=== PATIENT | male | born 1980 | race Caucasian/White ===

== ENCOUNTER 2018-06-06 04:20 | Emergency (ER) | payer OTHER ==
[2018-06-06 04:26] VITALS: BP 131/84
[2018-06-06 05:03] LABS: PLATELET COUNT 363 10^3/uL (150-400)
--- NOTE | 2018-06-06 06:02 | EDPHY ---
H & P Stated Complaint: Chest pain Time Seen by Provider: 06/06/18 05:40 HPI/ROS: HPI The patient presents with chest pain which has been present for the last several hours which started fairly suddenly. He feels it in his left anterior chest in a small well-localized area. It feels sharp and is worse with a deep breath. There is no radiation. He does not have shortness of breath, nausea, vomiting, dizziness. He has not had a cough or fever. He does not have any leg swelling. About 1 week ago he did return from an international flight. He has had no prior history of similar pain.. REVIEW OF SYSTEMS 10 systems were reviewed and negative with the exception of the elements mentioned in the history of present illness. 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 PHYSICAL General Appearance: Alert, no distress Eyes: Pupils equal and round no pallor or injection ENT, Mouth: Mucous membranes moist Respiratory: There are no retractions, lungs are clear to auscultation Cardiovascular: Regular rate and rhythm Gastrointestinal: Abdomen is soft and non-tender, no masses, bowel sounds normal Neurological: A&O, moves all extremities Skin: Warm and dry, no rashes Musculoskeletal: Neck is supple non tender Extremities: symmetrical, full range of motion Psychiatric: Patient is oriented X 3, there is no agitation Source: Patient Exam Limitations: No limitations - Personal History Current Tetanus/Diphtheria Vaccine: Yes Current Tetanus Diphtheria and Acellular Pertussis (TDAP): Yes - Medical/Surgical History Hx Asthma: No Hx Chronic Respiratory Disease: No Hx Diabetes: No Hx Cardiac Disease: No Hx Renal Disease: No Hx Cirrhosis: No Hx Alcoholism: No Hx HIV/AIDS: No Hx Splenectomy or Spleen Trauma: No Other PMH: Denies - Social History Smoking Status: Current some day smoker Constitutional: Initial Vital Signs Temperature (C) 37.3 C 06/06/18 04:24 Heart Rate 81 06/06/18 04:24 Respiratory Rate 16 06/06/18 04:24 Blood Pressure 131/84 H 06/06/18 04:24 O2 Sat (%) 95 06/06/18 04:24 O2 Delivery Mode Room Air Allergies/Adverse Reactions: No Known Allergies Allergy (Verified 06/06/18 04:22) Medical Decision Making - Diagnostics EKG Interpretation: EKG: Complete interpretation has been separately [facility] the [email or web address]. Summary impression: Normal sinus rhythm Imaging Results: Chest x-ray two views shows no acute abnormality, interpreted by me, radiology interpretation is pending. Imaging: I viewed and interpreted images myself Differential Diagnosis: 38-year-old healthy man presents with left-sided pleuritic sharp chest pain. Here, vital signs are normal, well-appearing. Lungs are clear. The patient had EKG chest x-ray and basic labs performed. All were negative. He informed me that when he took a deep breath for the chest x-ray his pain spontaneously improved and now he is he is asymptomatic and feels well. Differential diagnoses considered include pulmonary embolism, pneumonia, pneumothorax. Ultimately, I feel his pain is likely musculoskeletal. He will be discharged home. - Data Points Laboratory Results: Laboratory Results 06/06/18 04:45 06/06/18 04:45 06/06/18 06/06/18 06/06/18 04:45 04:45 04:45 WBC 7.14 10^3/uL 10^3/uL (3.80-9.50) RBC 5.43 10^6/uL 10^6/uL (4.40-6.38) Hgb 15.6 g/dL g/dL (13.7-17.5) Hct 46.3 % % (40.0-51.0) MCV 85.3 fL fL (81.5-99.8) MCH 28.7 pg pg (27.9-34.1) MCHC 33.7 g/dL g/dL (32.4-36.7) RDW 12.9 % % (11.5-15.2) Plt Count 363 10^3/uL 10^3/uL (150-400) MPV 8.6 fL L fL (8.7-11.7) Neut % (Auto) 54.7 % % (39.3-74.2) Lymph % (Auto) 34.5 % % (15.0-45.0) [place] % (Auto) 8.4 % % (4.5-13.0) Eos % (Auto) 1.4 % % (0.6-7.6) Baso % (Auto) 0.7 % % (0.3-1.7) Nucleat RBC Rel Count 0.0 % % (0.0-0.2) Absolute Neuts (auto) 3.91 10^3/uL 10^3/uL (1.70-6.50) Absolute Lymphs (auto) 2.46 10^3/uL 10^3/uL (1.00-3.00) Absolute Monos (auto) 0.60 10^3/uL 10^3/uL (0.30-0.80) Absolute Eos (auto) 0.10 10^3/uL 10^3/uL (0.03-0.40) Absolute Basos (auto) 0.05 10^3/uL 10^3/uL (0.02-0.10) Absolute Nucleated RBC 0.00 10^3/uL 10^3/uL (0-0.01) Immature Gran % 0.3 % % (0.0-1.1) Immature Gran # 0.02 10^3/uL 10^3/uL (0.00-0.10) D-Dimer 0.39 ug/mLFEU ug/mLFEU (0.00-0.50) Sodium 142 mEq/L mEq/L (135-145) Potassium 3.7 mEq/L mEq/L (3.5-5.2) Chloride 104 mEq/L mEq/L (97-110) Carbon Dioxide 26 mEq/l mEq/l (22-31) Anion Gap 12 mEq/L mEq/L (6-14) BUN 16 mg/dL mg/dL (7-23) Creatinine 1.1 mg/dL mg/dL (0.7-1.3) Estimated GFR > 60 Glucose 97 mg/dL mg/dL (70-100) Calcium 9.8 mg/dL mg/dL (8.5-10.4) Departure - Departure Disposition: Home, Routine, Self-Care Clinical Impression: Chest wall pain Condition: Good Instructions: Chest Wall Pain (ED) Additional Instructions: Please return to the emergency department if your worse in any way. If the pain comes back, I do recommend you take ibuprofen 400 mg every 6 hr. Referrals: [facility],. [Clinic] - As per Instructions
--- NOTE | 2018-06-06 06:20 | CPEKG ---
Test Reason : OPEN Blood Pressure : / mmHG Vent. Rate : 085 BPM Atrial Rate : 085 BPM P-R Int : 154 ms QRS Dur : 101 ms QT Int : 385 ms P-R-T Axes : 006 012 018 degrees QTc Int : 458 ms Sinus rhythm Confirmed by Neisha Serrano ([id number]) on 06/06/2018 6:19:11 AM Referred By: PHYSICIAN ED Confirmed By:Neisha Serrano
== END 2018-06-06 06:09 | disposition home or self-care (01) ==
DX: R91.8 Other nonspecific abnormal finding of lung field (principal)

== ENCOUNTER 2018-08-10 20:08 | Emergency (ER) | payer OTHER ==
[2018-08-10] MEDS ORDERED: DEXAMETHASONE 4 MG TAB PO ONE (21:50)
[2018-08-10] MEDS ORDERED: IBUPROFEN 800 MG TAB PO ONE (21:50)
--- NOTE | 2018-08-10 21:50 | EDPHY ---
H & P Time Seen by Provider: 08/10/18 21:19 HPI/ROS: Chief complaint: Sore throat History of present illness: This is a 38-year-old male who presents to the emergency department for a sore throat. Patient reports the onset of symptoms over the last 3 days. He has had associated headache and fatigue. Symptoms have been persistent. No report of fever. No neck pain. No report of trouble swallowing or talking, no report of cough or trouble breathing, no rash. Smoking Status: Former smoker Physical Exam: General Appearance: Alert and no distress. Eyes: Pupils equal and round no injection. ENT: Tympanic membranes, external auditory canals, external ears and surrounding soft tissue including over the mastoids are unremarkable. Nasopharynx is not injected. There is no rhinorrhea. Oropharynx is injected. There is no edema. Tonsils are erythematous and edematous with exudate. There is no asymmetry The uvula is midline. No elevation of the tongue. There is no hoarseness, no drooling, no trismus, no stridor. Respiratory: Chest is non tender, lungs are clear to auscultation. Cardiac: regular rate and rhythm Musculoskeletal: Neck is supple and non tender. Extremities have full range of motion and are non tender. Skin: No rashes or lesions. Constitutional: Initial Vital Signs Temperature (C) 37.3 C 08/10/18 20:12 Heart Rate 105 H 08/10/18 20:12 Respiratory Rate 18 08/10/18 20:12 Blood Pressure 130/94 H 08/10/18 20:12 O2 Sat (%) 93 08/10/18 20:12 O2 Delivery Mode Room Air Allergies/Adverse Reactions: No Known Allergies Allergy (Verified 06/06/18 04:22) Home Medications: Medication Instructions Recorded Amoxicillin Trihydrate [Amoxil] 500 mg PO TID 10 Days cap 08/10/18 MDM/Departure - MDM Medications Given: Discontinued Medications Amoxicillin (Amoxicillin) 500 mg PO EDNOW ONE PRN Reason: Protocol Stop: 08/10/18 21:51 Last Admin: 08/10/18 21:58 Dose: 500 mg Dexamethasone (Decadron) 10 mg PO EDNOW ONE Stop: 08/10/18 21:51 Last Admin: 08/10/18 21:59 Dose: 10 mg Ibuprofen (Motrin) 800 mg PO EDNOW ONE Stop: 08/10/18 21:51 Last Admin: 08/10/18 21:59 Dose: 800 mg ED Course/Re-evaluation: Patient seen under the supervision of my secondary supervising physician Dr. Hi Pritchett. Patient presents for sore throat. He appears to have an acute tonsillitis. I do not appreciate evidence of complications. He will be started on antibiotics. Home care is discussed. He is to follow up with primary care doctor for recheck. Return precautions are given. Differential Diagnosis: Included but not limited to tonsillitis, pharyngitis, doubtful complications such as abscess formation - Depart Disposition: Home, Routine, Self-Care Clinical Impression: Acute bacterial tonsillitis Condition: Good Instructions: Tonsillitis (ED) Additional Instructions: Follow-up with a primary care doctor this week for recheck Use ibuprofen 600 mg 3 times a day for the next 2-3 days for pain and swelling Take all antibiotics as prescribed until finished even feeling better If symptoms worsen or new symptoms develop return to the emergency room for recheck Prescriptions: Amoxicillin Trihydrate [Amoxil] 500 mg PO TID 10 Days cap Referrals: [facility],. [Clinic] - As per Instructions
[2018-08-10 22:08] VITALS: BP 124/75
== END 2018-08-10 22:01 | disposition home or self-care (01) ==
DX: J03.90 Acute tonsillitis, unspecified (principal)